=== PATIENT | female | born 1970 | race American Indian/Alaskan Native ===

== ENCOUNTER 2017-06-05 11:00 | Outpatient (CLI) | payer OTHER | END 2017-06-05 11:01 | disposition home or self-care (01) | LOC: SLR 11:00 | PROVIDERS: ATTEND Specialist | DX: G47.30 Sleep apnea, unspecified (principal); E66.9 Obesity, unspecified | CPT/HCPCS: G0399 ==

== ENCOUNTER 2017-09-29 06:13 | Day surgery (SDC) | payer OTHER ==
--- NOTE | 2017-09-29 07:45 | Anesthesia Consultation ---
Anesthesia Consult and Med Hx Date of service: 09/29/17 - Airway Anesthetic Teeth Evaluation: Good (braces) ROM Head & Neck: Adequate Mental/Hyoid Distance: Adequate Mallampati Class: Class I Intubation Access Assessment: Good - Pulmonary Exam CTA: Yes - Cardiac Exam Cardiac Exam: RRR - Pre-Operative Health Status ASA Pre-Surgery Classification: ASA3 Proposed Anesthetic Plan: MAC - Pulmonary Hx Sleep Apnea: Yes (cpap) - Gastrointestinal Hx Gastroesophageal Reflux Disease: Yes - Endocrine Hx Hypothyroidism: Yes - Other Systems Hx Obesity: Yes - Additional Comments Anesthesia Medical History Comments: migraines
--- NOTE | 2017-09-29 07:45 | Anesthesia Day of Surgery ---
Anesthesia Day of Surgery - Day of Surgery Patient Examined: Yes Patient H&P Reviewed: Yes Patient is NPO: Yes
[2017-09-29] MEDS ORDERED: NACL 0.9% 1000 ML 1,000 ML IV SCH (09:00)
[2017-09-29] MEDS ORDERED: HURRICAINE ONE 20% TOPICAL SPRAY MM (09:12)
[2017-09-29] MEDS ORDERED: DIPRIVAN 10 MG/ML IV ONE (09:14)
[2017-09-29] MEDS ORDERED: WATER FOR IRRIG STERILE IR ONE (09:26)
[2017-09-29 10:49] VITALS: BP 110/72
--- NOTE | 2017-09-29 11:34 | Post Anesthesia Evaluation ---
- Post Anesthesia Evaluation Patient Participated: Yes Airway Patent: Yes Stable Respiratory Function: Yes Nausea/Vomiting: No Temp > 96.8F: Yes Pain Manageable: Yes Adequeate Hydration: Yes Anesthesia Complications: No
[2017-09-29] MEDS ORDERED: HURRICAINE ONE 20% TOPICAL SPRAY MM NR (15:00)
== END 2017-09-29 06:14 | disposition home or self-care (01) ==
LOC: GIO 06:13
PROVIDERS: ATTEND Specialist
DX: K21.0 Gastro-esophageal reflux disease with esophagitis (principal); K44.9 Diaphragmatic hernia without obstruction or gangrene; E03.9 Hypothyroidism, unspecified; G43.909 Migraine, unspecified, not intractable, without status migrainosus; G47.33 Obstructive sleep apnea (adult) (pediatric); E66.01 Morbid (severe) obesity due to excess calories; Z99.89 Dependence on other enabling machines and devices
CPT/HCPCS: 43235; 81025; J2704; J7030

== ENCOUNTER 2017-10-13 07:50 | Inpatient (IN) | payer OTHER ==
[~2017-10-13 07:50] MED LIST: ANCEF/STERILE WATER 2 GM/20 ML 2 GM/20 ML SYRINGE IV NR; APRESOLINE IV PRN; DILAUDID IV PRN; FLAGYL 500 MG/100 ML 500 MG/100 ML BAG IV NR; LACTATED RINGERS 1,000 ML IV SCH; MORPHINE IV PRN; REGLAN IV PRN; TRANSDERM-SCOP TD SCH; ZOFRAN IV PRN
--- NOTE | 2017-10-13 09:35 | Anesthesia Consultation ---
Anesthesia Consult and Med Hx Date of service: 10/13/17 - Airway Anesthetic Teeth Evaluation: Poor (patient has braces. missing a few teeth) ROM Head & Neck: Adequate Mental/Hyoid Distance: Adequate Mallampati Class: Class II Intubation Access Assessment: Good - Pulmonary Exam CTA: Yes - Cardiac Exam Cardiac Exam: RRR - Pre-Operative Health Status ASA Pre-Surgery Classification: ASA3 Proposed Anesthetic Plan: General - Pulmonary Hx Sleep Apnea: Yes - Central Nervous System Hx Psychiatric Problems: Yes - Gastrointestinal Hx Gastroesophageal Reflux Disease: Yes - Endocrine Hx Hypothyroidism: Yes Hx Hyperthyroidism: Yes - Other Systems Hx Alcohol Use: No Hx Substance Use: No Hx Cancer: No Hx Obesity: Yes
--- NOTE | 2017-10-13 09:36 | Anesthesia Day of Surgery ---
Anesthesia Day of Surgery - Day of Surgery Patient Examined: Yes Patient H&P Reviewed: Yes Patient is NPO: Yes
[2017-10-13] MEDS ORDERED: REGLAN IV PRN (09:37)
[2017-10-13] MEDS ORDERED: NARCAN 0.4 MG/1 ML IV PRN (09:37)
[2017-10-13] MEDS ORDERED: DILAUDID IV PRN (09:37)
[2017-10-13] MEDS ORDERED: DEMEROL IV PRN (09:37)
[2017-10-13] MEDS ORDERED: TORADOL IV PRN (09:37)
[2017-10-13] MEDS ORDERED: ZOFRAN IV PRN (09:37)
[2017-10-13 09:44] LABS: Bilirubin,Urine NEG (Negative); Blood,Urine LG (Negative); Color,Urine Red (Yellow); Mucus,Urine FEW /HPF; RBC,Urine > 182.0 /HPF (0.0-6.0); Urobilinogen,Urine < 2.0 mg/dL (<2.0)
[2017-10-13] MEDS: LOVENOX SUB-Q NR (09:46)
[2017-10-13] MEDS ORDERED: ZOFRAN IV NR ×2 (10:00)
[2017-10-13] MEDS ORDERED: ROBINUL IV NR (10:00)
[2017-10-13] MEDS ORDERED: DECADRON 12 MG in NACL 0.9% 50 ML IV NR (10:00)
[2017-10-13] MEDS ORDERED: FLAGYL 500 MG/100 ML 500 MG/100 ML BAG IV NR (10:00)
[2017-10-13] MEDS ORDERED: VERSED IV NR (10:00)
[2017-10-13] MEDS ORDERED: DIPRIVAN 10 MG/ML IV ONE ×2 (11:03→11:05)
[2017-10-13] MEDS ORDERED: SUBLIMAZE ONE (11:05)
[2017-10-13] MEDS ORDERED: XYLOCAINE 1% 20 mL ONE (11:26)
[2017-10-13] MEDS ORDERED: MARCAINE 0.5% 30 ML INFILTRATI ONE (11:26)
[2017-10-13] MEDS ORDERED: XYLOCAINE 1% 20 mL INFILTRATI ONE ×2 (12:09)
[2017-10-13] MEDS ORDERED: MARCAINE 0.5% INFILTRATI ONE ×2 (12:09)
[2017-10-13] MEDS ORDERED: NACL 0.9% IR ONE (12:39)
[2017-10-13] MEDS ORDERED: ZOFRAN ONE (13:00)
[2017-10-13] MEDS ORDERED: XYLOCAINE MPF 2% ONE (13:11)
[2017-10-13] MEDS ORDERED: NEOSTIGMINE ONE (13:11)
[2017-10-13] MEDS ORDERED: ZEMURON IV ONE (13:11)
[2017-10-13] MEDS ORDERED: QUELICIN ONE (13:11)
[2017-10-13] MEDS ORDERED: ROBINUL ONE (13:12)
[2017-10-13] MEDS ORDERED: DILAUDID ONE (13:13)
--- NOTE | 2017-10-13 13:14 | Operative Report ---
Operative Report Operative Report: ATE OF PROCEDURE: 10/13/17 PREOPERATIVE DIAGNOSES: Morbid obesity, hiatal hernia POSTOPERATIVE DIAGNOSES: 1.same as pre-op SURGEON: Dr. Coates SHIPPING SUPPORT: Amos Monson DO PROCEDURE: 1. laparoscopic sleeve gastrectomy 2. laparoscopic hiatal hernia repair 3.Lysis of adhesions ANESTHESIA: General. ESTIMATED BLOOD LOSS: <5 mL. COMPLICATIONS: None. SPECIMEN: Partial gastrectomy. FINDINGS: 1. hiatal hernia INDICATION FOR PROCEDURE: Patient is a 46-year-old female with a long history of morbid obesity. She has tried multiple efforts at weight loss without [facility] success. She is here today for sleeve gastrectomy. PROCEDURE IN DETAIL: After consent was reviewed, patient was taken back to the operating room, where patient was placed supine on the bed with both arms out. The patient's legs were doubly strapped to the bed. Patient had a foot board in place. Patient had a body warmer placed by anesthesia. Patient was then prepped and draped in normal sterile surgical fashion. After a time-out was called, I made a stab incision in the left upper quadrant and palced a vweress needle and insuflatted the abdomen to 18mmhg. Once the abdomen was adequately insuflated an umbilical incision was made for the 15 trocar inserted a 15mm trocar. I then placed a 45-degree scope through this port and inspected the abdomen. There was no injury on entry of the abdomen. The veress needle was removed. I then placed two 5-mm ports in the right upper quadrant, one along the anterior axillary line and 1 subxiphoid below the costovertebral angle. I then placed left upper quadrant port along the anterior axillary line in a similar fashion. An additional 5mm port was placed in the left quadrant. I then placed the liver retractor through the subxiphoid port and placed the patient in full reverse Trendelenburg. The right and left crura were skeletonized accentuating a hiatal hernia. An anterior cruraplasty was perfromed with a figure-of-8 and single interrupted stitch using the endostich device with 0 ethibond suture to reapproximate the crura. I then identified the pylorus and then counted off 6cm from the pylorus. I then used a LigaSure cutting device to enter into the lesser sac. At that point and then I took down the short gastrics all the way up to the left rufino. Then I had anesthesia pass down a 40-[place] bougie along the lesser curvature of the stomach. I made sure everything else was out of the abdomen except the bougie. I then created my gastric sleeve using a 60-mm laparoscopic stapler. . The sleeve looked good without any twisting or torsion. I then had anesthesia to remove the bougie. Hemostasis was obtained along the staple line. I then removed liver grasper and took it off the field. I then removed the stomach through the 15-mm umbilcal port. I then closed that fascia with a #1 PDS in a [id number] fashion using a Sebastián-[place]eth[place]. I then desufflated the abdomen and then removed all port sites. I then closed the incisions with 4-0 Monocryl in subcuticular fashion. I then dressed the wounds with steristrips, gauze and tegaderm. Patient tolerated the procedure well and was transferred to recovery room in good and stable condition
[2017-10-13] MEDS: MYLICON PO PRN (14:08)
[2017-10-13] MEDS: NORCO PO PRN (14:22)
[2017-10-13] MEDS: LOVENOX SUB-Q SCH (15:48)
[2017-10-14] MEDS: MYLICON PO PRN ×2 (00:57→13:06)
[2017-10-14 06:04] LABS: Basophils % (Auto) 0.3 % (0.0-1.8); Hematocrit 39.8 % (30.3-42.9); Hemoglobin 13.8 gm/dl (10.1-14.3); Lymphocytes # (Auto) 2.5 K/mm3 (1.2-5.4); Lymphocytes % (Auto) 21.5 % (13.4-35.0); Mean Corpuscular HGB Conc 35 % (30-34); Mean Corpuscular Hemoglobin 30 pg (28-32); Mean Corpuscular Volume 87 fl (79-97); Monocytes % (Auto) 8.6 % (0.0-7.3); Platelet Count 368 K/mm3 (140-440); Red Blood Count 4.58 M/mm3 (3.65-5.03); Red Cell Distribution Width 13.2 % (13.2-15.2)
[2017-10-14] MEDS: NORCO PO PRN (06:05)
[2017-10-14 06:27] LABS: BUN/Creatinine Ratio 15; Blood Urea Nitrogen 9 mg/dL (7-17); Calcium 8.9 mg/dL (8.4-10.2); Hemolysis Index 8
[2017-10-14] MEDS ORDERED: THYROID PO SCH (10:00)
[2017-10-14] MEDS ORDERED: PROTONIX IV SCH (10:00)
[2017-10-14] MEDS: LOVENOX SUB-Q NR (10:12)
[2017-10-14] MEDS: LOVENOX SUB-Q SCH (10:21)
--- NOTE | 2017-10-14 16:05 | Discharge Summary ---
Providers - Providers Date of Admission: 10/13/17 07:50 Attending physician: YONG STUART Primary care physician: HERB PARISI Hospitalization Condition: Good Procedures: laparoscopic sleeve gastrectomy with hiatal hernia repair Hospital course: 46 y.o. F admitted to the hospital for bariatric surgery. She underwent a laparoscopic sleeve gastrectomy with hiatal hernia repair . She tolerated the procedure well. On POD 1 she tolerated liquids and her pain was controlled. She denied any nausea or vomiting . She ambulated well. She was discharged on POD 1 without issues. Disposition: DC-01 TO HOME OR SELFCARE Core Measure Documentation - Palliative Care Palliative Care/ Comfort Measures: Not Applicable - Core Measures Any of the following diagnoses?: none Exam - Physical Exam Narrative exam: Gen : A+Ox3 Cardio RRR abd: soft, obese, tender at incision sites. no rebound no guarding. minimal blood stain on dressings. - Constitutional Vitals: Temp Pulse Resp BP Pulse Ox 99.2 F 67 18 125/80 96 10/14/17 11:28 10/14/17 11:28 10/14/17 11:28 10/14/17 11:28 10/14/17 11:28 Plan Activity: other (no lifting >15lbs for 6 weeks ) Diet: other (clear sugar free liquids ) Wound: keep clean and dry Additional Instructions: Follow up for wound check appointment Follow up with: HERB PARISI MD [Primary Care Provider] - 7 Days
[2017-10-14 16:45] VITALS: BP 120/70
== END 2017-10-14 17:50 | disposition home or self-care (01) | DRG 328 ==
LOC: 3A 07:50 → 3B-SURG 14:00
PROVIDERS: ADMIT Specialist; ATTEND Specialist
PROC: 0DB64Z3 Excision of Stomach, Percutaneous Endoscopic Approach, Vertical (ICD-10-PCS; principal; 2017-10-13)
PROC: 0BQT4ZZ Repair Diaphragm, Percutaneous Endoscopic Approach (ICD-10-PCS; 2017-10-13)
DX: K44.9 Diaphragmatic hernia without obstruction or gangrene (principal); E66.01 Morbid (severe) obesity due to excess calories; E03.9 Hypothyroidism, unspecified; K21.9 Gastro-esophageal reflux disease without esophagitis; G47.30 Sleep apnea, unspecified; Z68.38 Body mass index [BMI] 38.0-38.9, adult
CPT/HCPCS: 36415; 80048; 81001; 81025; 85025; 88307; 88313; 88342; 94760; C9113; J0330; J0690; J1100; J1170; J1650; J1885; J2175; J2250; J2405; J2704; J2710; J2765; J3010; J7120